=== PATIENT | female | born 1960 | race Hispanic/Latino ===

== ENCOUNTER 2016-09-25 11:11 | Outpatient (CLI) | payer MEDICARE ==
[2016-09-25 11:39] LABS: Hematocrit 40.4 % (30.3-42.9); Hemoglobin 14.1 gm/dl (10.1-14.3); Mean Corpuscular HGB Conc 35 % (30-34); Mean Corpuscular Hemoglobin 34 pg (28-32); Mean Corpuscular Volume 99 fl (79-97); Platelet Count 113 K/mm3 (140-440); Red Cell Distribution Width 13.5 % (13.2-15.2); White Blood Count 4.9 K/mm3 (4.5-11.0)
[2016-09-25 11:55] LABS: Alanine Aminotransferase 28 units/L (7-56); Albumin 3.4 g/dL (3.9-5); Albumin/Globulin Ratio 0.9 %; Alkaline Phosphatase 74 units/L (35-129); Amylase 55 units/L (27-131); Anion Gap 12 mmol/L; BUN/Creatinine Ratio 23.33; Bilirubin,Total 0.7 mg/dL (0.1-1.2); Blood Urea Nitrogen 14 mg/dL (7-17); Calcium 8.9 mg/dL (8.4-10.2); Carbon Dioxide 32 mmol/L (22-30); Chloride 97.1 mmol/L (98-107); Cholesterol 128 mg/dL (50-199); Glucose 84 mg/dL (65-100); HDL Cholesterol 46 mg/dL (40-59); LDL Cholesterol,Direct 64 mg/dL (50-130); Potassium 4.3 mmol/L (3.6-5.0); Sodium 137 mmol/L (137-145); Total Protein 7.4 g/dL (6.3-8.2); Triglycerides 94 mg/dL (2-149)
[2016-09-27 17:07] LABS: Vitamin D, 25-OH, Total 29 ng/mL (30-100)
== END 2016-09-25 11:12 | disposition home or self-care (01) ==
LOC: LAB 11:11
DX: Z79.891 Long term (current) use of opiate analgesic (principal); Z79.899 Other long term (current) drug therapy
CPT/HCPCS: 36415; 80053; 80061; 80164; 82150; 82306; 83036; 85027